=== PATIENT | female | born 1980 | race Caucasian/White ===

== ENCOUNTER 2016-12-20 17:18 | Emergency (ER) | payer MEDICARE | END 2016-12-20 18:13 | disposition home or self-care (01) | LOC: ER 17:18 | DX: M54.9 Dorsalgia, unspecified (principal); F17.210 Nicotine dependence, cigarettes, uncomplicated; Z88.0 Allergy status to penicillin; Z79.3 Long term (current) use of hormonal contraceptives | CPT/HCPCS: 72040; 72072; 72100; 99283-25 ==